=== PATIENT | female | born 1945 | race Caucasian/White ===

== ENCOUNTER → 2018-05-27 | Outpatient (CLI) | payer MEDICARE ==
--- NOTE | 2018-05-27 14:27 | PCVCIMAG ---
EXAM: BILATERAL LOWER EXTREMITY ARTERIAL DUPLEX INDICATION: Peripheral Arterial Disease. Leg pain. Bilateral lower leg ulcers. FINDINGS: Right Leg: Satisfactory arterial waveforms throughout the common/profunda/superficial femoral, popliteal, anterior tibial, peroneal, and posterior tibial arteries. No flow limiting stenosis seen. Left Leg: Satisfactory arterial waveforms throughout the common/profunda/superficial femoral, popliteal, anterior tibial, peroneal, and posterior tibial arteries. No flow limiting stenosis seen. IMPRESSION: No flow limiting stenosis in the right lower extremity. The mid left posterior tibial artery is difficult to visualize. Otherwise no flow limiting stenosis in the left lower extremity. LOC:[id number]
== END | disposition home or self-care (01) ==
LOC: PCVCIMAG 13:10
PROVIDERS: ATTEND Internal Medicine
DX: I73.9 Peripheral vascular disease, unspecified (principal); L97.921 Non-pressure chronic ulcer of unspecified part of left lower leg limited to breakdown of skin; L97.911 Non-pressure chronic ulcer of unspecified part of right lower leg limited to breakdown of skin
CPT/HCPCS: 93925

== ENCOUNTER → 2018-12-31 | Outpatient (CLI) | payer MEDICARE ==
--- NOTE | 2018-12-31 14:31 | PCVCIMAG ---
APPROVED REPORT Study performed: 12/31/2018 13:10:12 EXAM: Comprehensive 2D, Doppler, and color-flow Echocardiogram Patient Location: Echo lab Status: routine BSA: 2.33 HR: 77 bpmBP: 158/100 mmHg Rhythm: NSR Other Information Study Quality: Adequate Risk Factors: Cardiac Risk Factors: HTN Indications Congestive Heart Failure Atrial Fibrillation 2D Dimensions IVSd: 12.89 (7-11mm)LVOT Diam: 21.10 (18-24mm) LVDd: 44.46 mm PWd: 13.64 (7-11mm)Ascending Ao: 29.61 (22-36mm) LVDs: 29.40 (25-40mm) Left Atrium: 51.20 (27-40mm) Aortic Root: 27.69 mm LV Single Plane 4CH: 49.98 % LV Single Plane 2CH: 50.46 % Biplane EF: 49.0 % Volumes Left Atrial Volume (Systole) Single Plane 4CH: 115.69 mLSingle Plane 2CH: 95.15 mL LA ESV Index: 47.00 mL/m2 Aortic Valve AoV Peak Corey.: 1.87 m/s AO Peak Gr.: 13.97 mmHgLVOT Max P.56 mmHg LVOT Max V: 0.80 m/s SOHAIL Vmax: 1.49 cm2 Pulmonary Valve PV Peak Corey.: 0.82 m/sPV Peak Gr.: 2.71 mmHg Tricuspid Valve TR Peak Corey.: 3.08 m/s TR Peak Gr.: 37.95 mmHg Left Ventricle The left ventricle is normal size. There is normal LV segmental wall motion. Mild concentric left ventricular hypertrophy. The overall left ventricular systolic function appears normal. LVEF is 50-55%. This study is not technically sufficient to allow evaluation of the LV diastolic function due to atrial fibrillation. Right Ventricle The right ventricle is normal size. The right ventricular systolic function is normal. Atria Left atrium is severely dilated. Right atrium is severely dilated. Aortic Valve Mild aortic valve sclerosis. No aortic regurgitation is present. There is no aortic valvular stenosis. Mitral Valve The mitral valve is normal in structure. Trace mitral regurgitation. No evidence of mitral valve stenosis. Tricuspid Valve The tricuspid valve is normal in structure. Mild to moderate tricuspid regurgitation with PAP of 44 mmHg. Pulmonic Valve The pulmonary valve is normal in structure. There is no pulmonic valvular regurgitation. Great Vessels The aortic root is normal in size. IVC is normal in size and collapses >50% with inspiration. Pericardium There is no pericardial effusion. There is no pleural effusion. <Conclusion> The left ventricle is normal size. Mild concentric left ventricular hypertrophy. The overall left ventricular systolic function appears normal. LVEF is 50-55%. The right ventricle is normal size. Left atrium is severely dilated. Right atrium is severely dilated. Mild aortic valve sclerosis. Trace mitral regurgitation. Mild to moderate tricuspid regurgitation with PAP of 44 mmHg.
== END | disposition home or self-care (01) ==
LOC: PCVCIMAG 13:54
PROVIDERS: ATTEND Internal Medicine Cardiovascular Disease
DX: I08.2 Rheumatic disorders of both aortic and tricuspid valves (principal); I11.0 Hypertensive heart disease with heart failure; I50.9 Heart failure, unspecified; I48.91 Unspecified atrial fibrillation; R60.9 Edema, unspecified; K21.9 Gastro-esophageal reflux disease without esophagitis; Z79.899 Other long term (current) drug therapy
CPT/HCPCS: 93005; 93306; G0463